=== PATIENT | male | born 1960 | race Caucasian/White ===

== ENCOUNTER 2018-12-19 01:10 | Inpatient (IN) | payer MEDICAID ==
[2018-12-19] VITALS (16 sets, daily range): BP systolic 113–157; BP diastolic 72–103; PULSE 50–75; RESP 16–34; Ht 167.6 cm; Wt 69.2 kg
[~2018-12-19] VITALS: Ht 167.6 cm; Wt 69.2 kg
[~2018-12-19 01:10] MED LIST: ASPI-1044 PO; ATOR-2 PO; BENA10TA4 PO; CLOP75TA27 PO
[2018-12-19] MEDS: NITROGLYCERIN (SL) 0.4 MG TAB SL PRN ×2 (01:16→01:25)
[2018-12-19] MEDS ORDERED: morphine 4 MG/ML VIAL ONE (01:26)
[2018-12-19] MEDS ORDERED: LORAZEPAM 2 MG INJ ONE (01:37)
[2018-12-19] MEDS ORDERED: MIDAZOLAM 1 MG/ML 2 ML INJ ONE (01:50)
[2018-12-19] MEDS ORDERED: IODIXANOL LOCM 100 ML BTL ONE ×2 (01:50→03:00)
[2018-12-19] MEDS ORDERED: HEPARIN 1000 UNITS/NS (A-LINE) 1,000 ML ONE (01:50)
[2018-12-19] MEDS ORDERED: FENTAnyl 50 MCG/ML VIAL ONE (01:51)
[2018-12-19] MEDS ORDERED: NITROGLYCERIN (IC) 100 MCG/ML INJ ONE (01:51)
[2018-12-19] MEDS ORDERED: VERAPAMIL 5 MG INJ ONE (01:51)
[2018-12-19] MEDS ORDERED: LIDOCAINE 1% (MDV) 20 ML INJ ONE (01:51)
[2018-12-19] MEDS ORDERED: LORAZEPAM 2 MG INJ IV PRN (02:00)
[2018-12-19] MEDS ORDERED: ATORVASTATIN 80 MG TAB PO ONE (02:00)
[2018-12-19] MEDS ORDERED: BISACODYL (EC) 5 MG TAB PO PRN (02:00)
[2018-12-19] MEDS ORDERED: NITROGLYCERIN (SL) 0.4 MG TAB SL PRN (02:00)
[2018-12-19] MEDS ORDERED: ACETAMINOPHEN 650MG/20.3ML CUP PO PRN (02:00)
[2018-12-19] MEDS ORDERED: DOCUSATE SODIUM 100 MG CAP PO PRN (02:00)
[2018-12-19] MEDS ORDERED: BIVALIRUDIN 250MG /NS 50 ML 50 ML IVPB ONE (03:00)
[2018-12-19] MEDS ORDERED: POTASSIUM CHLORIDE 50 ML ONE ×2 (03:00→03:25)
[2018-12-19] MEDS ORDERED: ASPIRIN 81 MG TAB ONE (03:01)
[2018-12-19] MEDS ORDERED: TICAGRELOR 90 MG TABLET ONE (03:01)
[2018-12-19] MEDS ORDERED: SOD CHLORIDE 0.9% 1,000 ML IV SCH (03:06)
[2018-12-19] MEDS ORDERED: BIVALIRUDIN 250MG /NS 50 ML 50 ML IVPB SCH (03:06)
[2018-12-19] MEDS ORDERED: OXYCODONE/ACETAMINOPHEN (5/325) TAB PO PRN (03:30)
[2018-12-19] MEDS ORDERED: ACETAMINOPHEN 325 MG TAB PO PRN (03:30)
[2018-12-19] MEDS ORDERED: morphine 2 MG INJ IV PRN (03:30)
[2018-12-19] MEDS ORDERED: ONDANSETRON 4 MG INJ IV PRN (03:30)
[2018-12-19] MEDS ORDERED: AL HYDROX/MG HYDROX/SIMETH 30 ML CUP PO PRN (03:30)
[2018-12-19] MEDS: PANTOPRAZOLE 40 MG INJ IV SCH (05:13)
[2018-12-19] MEDS ORDERED: NITROGLYCERIN 50 MG/D5W 250 ML BTL ONE (07:00)
[2018-12-19] MEDS ORDERED: METOPROLOL 5 MG INJ ONE (07:00)
[2018-12-19] MEDS ORDERED: AMIODARONE 150 MG INJ ONE (07:00)
[2018-12-19] MEDS: ASPIRIN (EC) 81 MG TAB PO SCH (08:33)
[2018-12-19] MEDS: TICAGRELOR 90 MG TABLET PO SCH ×2 (08:33→20:41)
[2018-12-19] MEDS ORDERED: hydrALAzine 20 MG INJ IV PRN (09:00)
[2018-12-19] MEDS: CHLORDIAZEPOXIDE 25 MG CAP PO SCH ×3 (09:17→20:42)
[2018-12-19] MEDS: THIAMINE 100 MG TAB PO SCH (09:17)
[2018-12-19] MEDS: BENAZEPRIL 10 MG TAB PO SCH ×2 (12:39→20:43)
[2018-12-19] MEDS ORDERED: ATORVASTATIN 80 MG TAB PO SCH (21:00)
[2018-12-20 00:14] VITALS: BP 116/72; PULSE 57; RESP 16
[2018-12-20] MEDS ORDERED: ATROPINE 1 MG/10 ML SYRINGE IV PRN (04:00)
[2018-12-20 04:12] VITALS: BP 97/63; PULSE 51; RESP 16
[2018-12-20] MEDS: PANTOPRAZOLE 40 MG INJ IV SCH (05:36)
[2018-12-20 07:16] VITALS: BP 102/64; PULSE 50; RESP 17
[2018-12-20] MEDS: THIAMINE 100 MG TAB PO SCH (08:43)
[2018-12-20] MEDS: ASPIRIN (EC) 81 MG TAB PO SCH (08:43)
[2018-12-20] MEDS: CHLORDIAZEPOXIDE 25 MG CAP PO SCH (08:45)
[2018-12-20] MEDS: BENAZEPRIL 10 MG TAB PO SCH (08:45)
[2018-12-20] MEDS ORDERED: CLOPIDOGREL 75 MG TAB PO ONE (09:00)
[2018-12-20] MEDS ORDERED: CLOPIDOGREL 75 MG TAB PO SCH (10:30)
[2018-12-20] MEDS ORDERED: CHLORDIAZEPOXIDE 5 MG CAP PO SCH (13:00)
[2018-12-20 15:25] VITALS: BP 112/71; PULSE 57; RESP 17
[2018-12-21] MEDS ORDERED: CLOPIDOGREL 75 MG TAB PO SCH (09:00)
[2018-12-21] MEDS ORDERED: BENAZEPRIL 10 MG TAB PO SCH (09:00)
== END 2018-12-20 20:24 | disposition home or self-care (01) | DRG 282 ==
LOC: E/R 01:10 → ICU 01:46 → CCL 01:46 → SDS 01:48 → CCL 01:48 → ICU 01:48 → TEL 15:20
PROVIDERS: ADMIT Family Medicine; ATTEND Family Medicine
PROC: 4A023N7 Measurement of Cardiac Sampling and Pressure, Left Heart, Percutaneous Approach (ICD-10-PCS; principal; 2018-12-19 02:00)
PROC: B211YZZ Fluoroscopy of Multiple Coronary Arteries using Other Contrast (ICD-10-PCS; 2018-12-19 02:00)
DX: I21.09 ST elevation (STEMI) myocardial infarction involving other coronary artery of anterior wall (principal); E78.5 Hyperlipidemia, unspecified; I25.10 Atherosclerotic heart disease of native coronary artery without angina pectoris; I10 Essential (primary) hypertension; F10.10 Alcohol abuse, uncomplicated; Y90.2 Blood alcohol level of 40-59 mg/100 ml; F17.210 Nicotine dependence, cigarettes, uncomplicated; R91.1 Solitary pulmonary nodule; R00.1 Bradycardia, unspecified; I25.5 Ischemic cardiomyopathy; Z79.82 Long term (current) use of aspirin; Z95.5 Presence of coronary angioplasty implant and graft; Z79.02 Long term (current) use of antithrombotics/antiplatelets
CPT/HCPCS: 36415; 71045; 71250; 80048; 80061; 80307; 82550; 82553; 83036; 83735; 84100; 84443; 84484; 85025; 87081; 93005; 93306; 93458; C1725; C1874; C1887; C9113; C9606; J0282; J0583; J1644; J2060; J2250; J2270; J3010; J3480; Q9967